=== PATIENT | female | born 1950 | race Caucasian/White ===

== ENCOUNTER 2024-12-17 00:55 | Emergency (ER) | payer OTHER, SELFPAY ==
[2024-12-17 01:08] VITALS: BMI 30.2
[2024-12-17 01:18] VITALS: BP 138/88
--- NOTE | 2024-12-17 01:24 | ED.GENMED ---
History of Present Illness
General
Chief Complaint: Heart Rate Problem
Source: patient
Exam Limitations: none
Time Seen by Provider: 12/17/24 01:13
Nursing documentation reviewed up to this point in time: agreed with
History of Present Illness
History of Present Illness:
74-year-old female with a past medical history of hyperlipidemia, atrial fibrillation, aortic stenosis, GERD who presents to the emergency room for evaluation of palpitations and chest discomfort. Patient reports onset of symptoms around 11:30 PM
while she was laying in bed and symptoms have been constant since that time. She denies any dizziness. Denies any shortness of breath. She denies any other complaints. She does have known history of atrial fibrillation. She says it has been
over a year since her last episode. She follows with Dr. Bill Valencia for cardiology. She said she is not on anticoagulation due to chronic anemia.
Review of Systems
Review of Systems
All Other Systems: ROS reviewed and negative except as documented in HPI and ROS
Constitutional: Denies fever
Respiratory: Denies trouble breathing
Cardiac: Reports chest pain and palpitations; Denies syncope
ABD/GI: Denies abdominal pain or vomiting
Musculoskeletal: Denies edema
Neurological: Denies dizzy
Phy Exam
Physical Exam
Physical Exam:
General: Awake, alert, oriented x3; no acute distress
Head: Normocephalic, atraumatic
Eyes: Conjunctiva normal, sclera anicteric
Throat: Airway intact, handling secretions
Neck: Trachea midline, no JVD
Lungs: Clear to auscultation bilaterally, no wheezing, rales, rhonchi
Heart: Tachycardia with irregularly irregular rhythm, no murmurs, gallops, or rubs
Neuro: No gross deficits
Extremities: No edema in extremities, equal pulses in all extremities
Scores
Heart Failure Risk
Heart Failure Risk Score: Not Applicable
Heart Score for Chest Pain Patients
STEMI patient?: Not applicable
Withdrawal Assessment of Alcohol
Withdrawal Assessment Completed?: Not applicable
Course
Orders/Labs/Results
Orders:
Orders
12/17/24 01:02
ECG [Electrocardiogram (*1)] Urgent
Reason for Study: Atrial Fibrillation
12/17/24 01:03
EKG- Treatment ONCE
12/17/24 01:22
Diltiazem HCl [Cardizem] 10 mg IV NOW STA
12/17/24 01:23
0.9% Sodium Chloride 500 ml [Nss] 500 ml IV BOLUS
12/17/24 01:25
Complete Blood Count/With Diff Urgent
Comprehensive Metabolic Panel Urgent
TSH Reflex To Free T4 Urgent
12/17/24 02:08
Diltiazem HCl [Cardizem] 10 mg IV NOW STA
12/17/24 02:38
Electrocardiogram (*1) Urgent
Reason for Study: Atrial Fibrillation
Other Reason for Exam: converted to SR
12/17/24 02:39
EKG- Treatment ONCE
12/17/24 02:51
Apixaban [Eliquis] 5 mg PO ONCE ONE
Abnormal Lab Results
12/17/24
01:25
RBC 4.14 L 10^6/uL
(4.20-5.40)
Hct 36.8 L %
(37.0-47.0)
MCH 31.2 H pg
(27.0-31.0)
Chloride 108 H mmol/L
(98-107)
Carbon Dioxide 19 L mmol/L
(22-30)
BUN 24 H mg/dl
(7-17)
Glucose 123 H mg/dl
(70-99)
Albumin 5.1 H g/dl
(3.5-5.0)
12/17/24 01:25
12/17/24 01:25
Vital Signs
Initial and Last Documented VS:
Initial Vital Signs
Temp Pulse Resp
36.4 C 148 22
12/17/24 00:57 12/17/24 00:57 12/17/24 00:57
Last Documented Vital Signs
Temp Pulse Resp BP Pulse Ox
36.4 C 97 13 132/78 99
12/17/24 00:57 12/17/24 02:11 12/17/24 02:00 12/17/24 02:11 12/17/24 02:00
MDM/Problems Addressed
Differential Diagnosis Includes:
Atrial fibrillation, SVT, atrial flutter
MDM/Problems Addressed:
74-year-old female presents for evaluation of palpitations and chest discomfort that started while at rest this evening. She is tachycardic with heart rate in the 140s to 150s. Rest of vitals normal. Physical exam as above. EKG shows atrial
fibrillation with rapid ventricular response. She is not on anticoagulation. Will plan to proceed with rate control with IV diltiazem. Usual labs sent off. Reassess after the above.
Labs reviewed: CBC and CMP no clinically significant abnormalities. Patient's heart rate improved with initial dose of diltiazem. Still 110. Repeat bolus.
Patient converted to sinus rhythm after second bolus of diltiazem. She is now sinus rhythm rate of 54. She is completely asymptomatic. Normotensive. Stable for discharge will start on Eliquis. Hold on starting beta-jason/calcium channel
jason given heart rate 50-60 here while in sinus. Follow-up with cardiology as an outpatient. Patient comfortable this plan. All questions answered.
Chronic conditions affecting care:
Atrial fibrillation
*Pulse Oximetry
Patient hypoxic: no
*EKG
Interpreted by ED Provider?: Yes
Heart Rate: 132
Rate: tachycardiac
Rhythm: a-fib
[place]: normal axis
Interval: normal interval
QRS Pattern: left vent hypertrophy
Ischemia: non-specific ST changes
*Critical Care Note
Total Time (30-74mins, 75-104mins- exclusive of procedures): Not Applicable
Data Reviewed
Source: patient and family
ED Attending Note
-
Portions of this chart may have been created with voice recognition software.� Occasional wrong word or��sound alike� substitutions may have occurred due to the inherent limitations of voice recognition software.
Discharge Plan
Departure
Patient Disposition: Home (Routine Discharge)
Date of Disposition: 12/17/24
Time of Disposition: 02:51
Patient with high blood pressure during this ER visit?: No
Discharge Problem:
Atrial fibrillation
Instructions: Atrial Fibrillation (DC)
Prescriptions:
New
Eliquis 5 mg tablet
5 mg PO BID Qty: 60 0RF
No Action
cetirizine 5 mg Tablet
5 mg PO DAILY
simvastatin 20 mg Tablet
20 mg PO HS
lisinopril 10 mg Tablet
10 mg PO DAILY
Referrals:
Bill Valencia MD [Non-Admitting Privileges] - Call in 1-3 days for appt
Yesy Gregg NP [Family Provider] -
Activity Restrictions/Additional Instructions:
Thank you for visiting the Emergency Department at [facility].
1. Please schedule a follow up appointment as directed. Call first thing tomorrow morning to make an appointment.
2. If indicated, please take your medications as instructed and indicated on discharge paperwork.
3. If any of your symptoms do not improve, or persist, or become more severe within 6-12 hours, please return to the emergency department for further care.
4. Please return to the emergency department if you develop a headache, neck pain/stiffness, fever greater than 100.4F, chest pain, shortness of breath, persistent nausea, vomiting, slurred speech, difficulty walking, numbness/tingling, weakness,
signs of infection or any other symptoms that are worrisome to you.
Please call [phone] if you have any questions.
Interventions
Interventions:
*Risk Screen - Suicide Last Done: 12/17/24 01:12
*General Assessment Last Done: 12/17/24 01:11
*Neglect/Abuse Screening Last Done: 12/17/24 01:11
*ED- Fall Risk Assessment Last Done: 12/17/24 01:11
*ED COVID-19 Vaccine History Last Done: 12/17/24 01:11
ED- Cardiac Assessment Last Done: 12/17/24 01:12
ED- Pulmonary Assessment Last Done: 12/17/24 01:12
Discharge Date and Time
Print Language: UPPER SORBIAN
[2024-12-17 01:28] VITALS: BP 125/82
[2024-12-17] MEDS: NSS 500 IV (01:28)
[2024-12-17] MEDS: CARDIZEM 10 MG IV ×2 (01:29→02:11)
[2024-12-17 01:35] LABS: % Basophils 1.1 % (0-2); % Eosinophils 4.1 % (0-6); % Immature Granulocytes 0.3 % (0-0.5); % Lymphocytes 31.6 % (20.5-51.1); % Neutrophils 54.9 % (42.2-75.2); Absolute Basophils 0.1 10^3/uL (0-0.2); Absolute Eosinophils 0.3 10^3/uL (0-0.7); Absolute Lymphocytes 2.3 10^3/uL (1.2-3.4); Absolute Monocytes 0.6 10^3/uL (0.1-0.6); Hematocrit 36.8 % (37.0-47.0); Hemoglobin 12.9 g/dL (12.0-16.0); Mean Corp Hgb Conc. 35.1 g/dL (33.0-37.0); Mean Corpuscular Hgb 31.2 pg (27.0-31.0); Mean Corpuscular Volume 88.9 fL (81.0-99.0); Mean Platelet Volume 10.2 fL (7.4-10.4); Nucleated Red Blood Cells % 0 %; Platelet Count 202 10^3/uL (130-400); Red Blood Cell Count 4.14 10^6/uL (4.20-5.40); Red Cell Dist. Width 13.1 % (11.5-14.5); White Blood Cell Count 7.3 10^3/uL (4.8-10.8)
[2024-12-17 02:00] VITALS: BP 132/78
[2024-12-17 02:03] LABS: ALT (SGPT) 23 U/L (0-35); AST (SGOT) 26 U/L (14-36); Albumin 5.1 g/dl (3.5-5.0); Alkaline Phosphatase 109 U/L (38-126); Blood Urea Nitrogen 24 mg/dl (7-17); Calcium 9.6 mg/dl (8.4-10.2); Carbon Dioxide 19 mmol/L (22-30); Chloride 108 mmol/L (98-107); Estimated Creatinine Clearance 103 ml/min; Glucose 123 mg/dl (70-99); Potassium 4.3 mmol/L (3.5-5.1); Sodium 140 mmol/L (135-145); Total Bilirubin 0.5 mg/dl (0.2-1.3); Total Protein 7.2 g/dl (6.3-8.2); eGFR > 60.00
[2024-12-17 02:23] LABS: TSH Reflex To Free T4 3.58 uIU/ml (0.47-4.68)
[2024-12-17 02:52] VITALS: BP 145/65
[2024-12-17] MEDS: ELIQUIS 5 MG PO (02:54)
== END 2024-12-17 03:06 | disposition home or self-care (01) ==
LOC: EMR 00:55
PROVIDERS: EMERGENCY PHYSICIAN Emergency Medicine; FAMILY PHYSICIAN Nurse Practitioner Family
DX: I48.91 Unspecified atrial fibrillation (principal); E78.5 Hyperlipidemia, unspecified; K21.9 Gastro-esophageal reflux disease without esophagitis; I35.0 Nonrheumatic aortic (valve) stenosis; D64.9 Anemia, unspecified
CPT/HCPCS: 96374; 96375; 96361; 99284; 80053; 84443; 85025; 93005

== ENCOUNTER → 2025-07-10 16:31 | Outpatient (REF) | payer OTHER, SELFPAY | LOC: RAD 16:31 | PROVIDERS: ATTENDING PHYSICIAN Internal Medicine Rheumatology; FAMILY PHYSICIAN Nurse Practitioner Family | DX: M54.41 Lumbago with sciatica, right side (principal); R76.89 Other specified abnormal immunological findings in serum | CPT/HCPCS: 72110 ==

== ENCOUNTER → 2025-08-15 08:13 | Outpatient (REF) | payer OTHER, SELFPAY | LOC: RAD 08:13 | PROVIDERS: ATTENDING PHYSICIAN Nurse Practitioner Family | DX: R68.81 Early satiety (principal); R93.89 Abnormal findings on diagnostic imaging of other specified body structures | CPT/HCPCS: 71250; 74178; Q9967 ==